=== PATIENT | female | born 1950 | race Caucasian/White ===

== ENCOUNTER 2023-01-12 07:59 | Outpatient (OUT) | payer MEDICARE, SELFPAY ==
[2023-01-12 08:32] LABS: Basophils Percent Auto 0.6 % (0.2-2.0); Eosinophils Absolute Auto 0.2 10^3/uL (0.0-0.7); Eosinophils Percent Auto 2.7 % (0.9-7.0); Hematocrit 41.4 % (36.0-48.0); Hemoglobin 13.8 g/dL (12.0-16.0); Immature Granulocytes Abs Auto 0.03 10^3/uL (0.00-0.03); Immature Granulocytes Pct Auto 0.5 % (0.0-0.5); Lymphocytes Absolute Auto 2.2 10^3/uL (1.2-3.8); Lymphocytes Percent Auto 33.7 % (20.5-60.0); Mean Corpuscular HGB Conc 33.3 g/dL (29.9-35.2); Mean Corpuscular Hemoglobin 31.2 pg (26.7-34.0); Mean Corpuscular Volume 93.5 fL (81.0-99.0); Mean Platelet Volume 10.6 fL (9.5-13.5); Monocytes Absolute Auto 0.5 10^3/uL (0.3-0.8); Monocytes Percent Auto 8.2 % (1.7-12.0); Neutrophils Absolute Auto 3.6 10^3/uL (1.4-6.5); Neutrophils Percent Auto 54.3 % (43.0-75.0); Platelet Count 221 10^3/uL (150-450); Red Blood Count 4.43 10^6/uL (4.20-5.40); Red Cell Distribution Width 12.6 % (11.0-15.0); White Blood Count 6.6 10^3/uL (4.0-11.0)
[2023-01-12 09:44] LABS: Alanine Aminotransferase 22 U/L (14-59); Albumin Globulin Ratio 0.9; Albumin Level 3.6 g/dL (3.4-5.0); Alkaline Phosphatase 72 U/L (46-116); Aspartate Amino Transferase 17 U/L (15-37); BUN Creatinine Ratio 20.2; Bilirubin Total 0.6 mg/dL (0.2-1.0); Calcium 8.5 mg/dL (8.5-10.1); Carbon Dioxide 28.3 mmol/L (21.0-32.0); Chloride 104 mmol/L (98-107); Chol HDL Ratio 2.4; Cholesterol 154 mg/dL (<=200); Estimated GFR (African America >60 (>=60); Estimated GFR (Non-African Ame >60 (>=60); Free T3 2.31 pg/mL (2.18-3.98); Globulin 3.8 g/dL; Glucose 98 mg/dL (74-106); HDL Cholesterol 64 mg/dL (40-60); Potassium 4.3 mmol/L (3.5-5.1); Sodium 142 mmol/L (136-145); Thyroid Stimulating Hormone 3.163 uIU/mL (0.358-3.740); Total Protein 7.4 g/dL (6.4-8.2); Triglycerides 51 mg/dL (<=150); VLDL CHOLESTEROL 10.2 mg/dL
[2023-01-12 09:57] LABS: Estimated Average Glucose 114 mg/dL; Glycohemoglobin A1C 5.6 % (4.5-6.2)
== END 2023-01-12 08:00 | disposition home or self-care (01) ==
LOC: LAB 08:07
PROVIDERS: PCP Family Medicine; Visit Provider Family Medicine
DX: E03.9 Hypothyroidism, unspecified (principal); L71.9 Rosacea, unspecified; I10 Essential (primary) hypertension; I44.7 Left bundle-branch block, unspecified; C50.919 Malignant neoplasm of unspecified site of unspecified female breast
CPT/HCPCS: 36415; 80053; 80061; 82306; 83036; 83540; 84436; 84443; 84481; 85025

== ENCOUNTER 2024-03-27 08:08 | Outpatient (OUT) | payer MEDICARE, SELFPAY ==
--- OUTSIDE RECORDS SUMMARY | 2024-03-27 08:14 | XMS_ITS | CCD ---
Author Organization [facility] Care Team Providers Care Slab Off Mill Tender Name Role Phone DR KALEB MCMULLEN Admitting Unavailable DR KALEB MCMULLEN Attending Unavailable DR KALEB MCMULLEN Primary Care Unavailable DR KALEB MCMULLEN Consulting Unavailable DR KALEB MCMULLEN Admitting Unavailable DR KALEB MCMULLEN Attending Unavailable WOO, DR MANUEL Primary Care Unavailable WOO, DR MANUEL Consulting Unavailable MD Kaleb Mcmullen Primary Care Provider [phone] MD Zack Brothers Attending Provider Kaleb Mcmullen MD Primary Care Provider [phone] MD Kaleb Mcmullen Primary Care Provider [phone] MD Zack Brothers Attending Provider Kaleb Mcmullen MD Primary Care Provider [phone] Zack Brothers MD Attending Provider Zack Brothers Attending Unavailable Zack Brothers Admitting Unavailable Kaleb Mcmullen Primary Care Unavailable Kaleb Mcmullen MD Primary Care Provider [phone] KALEB MCMULLEN Primary Care Unavailable Steffen BROTHERS Attending Unavailable Allergies Allergy Classification Reported Allergen(s) Allergy Type Date of Onset Reaction(s) Facility (1 source) Erythromycin Drug Allergy [facility] (1 source) HYDROmorphone Drug Allergy [facility] (3 sources) Erythromycin; Translations: [ERYTHROMYCIN] Drug Allergy 2 Vomiting [facility] (3 sources) HYDROmorphone; Translations: [HYDROMORPHONE (BULK)] Drug Allergy 9 Mental Status Change [facility] Medications Current Medications Medication Drug Class(es) Dates Sig (Normalized) Sig (Original) brimonidine tartrate 2 mg/ml ophthalmic solution (1 source) alpha-Adrenergic Agonist Start: 02-17-2024 brimonidine (ALPHAGAN) 0.2 % ophthalmic solution USE 1 DROP IN LEFT EYE EACH MORNING 02/17/2024 Active latanoprost 0.05 mg/ml ophthalmic solution (2 sources) Prostaglandin Analog Start: 02-02-2022 latanoprost (XALATAN) 0.005 % ophthalmic solution 02/02/2022 Active liothyronine sodium 0.005 mg oral tablet (2 sources) l-Triiodothyronine Start: 01-10-2022 take 1 tablet by mouth once daily liothyronine (CYTOMEL) 5 mcg tablet Take 5 mcg by mouth once daily. 01/10/2022 Active Comment on above: Take 5 mcg by mouth once daily. lisinopril 20 mg oral tablet (2 sources) Angiotensin Converting Enzyme Inhibitor Start: 11-30-2011 take 1 tablet by mouth once daily lisinopril (ZESTRIL) 20 mg tablet Take 20 mg by mouth once daily. 11/30/2011 Active Start: 11-30-2011 take 2 tablets by [facility] once daily LISINOPRIL 10 mg tablet Take 20 mg by mouth once daily. 0 11/30/2011 Active Comment on above: Take 20 mg by mouth once daily. loratadine 10 mg oral tablet (2 sources) take 1 tablet by mouth once daily loratadine (CLARITIN) 10 mg tablet Take 10 mg by mouth once daily. Active Comment on above: Take 10 mg by mouth once daily. lovastatin 20 mg oral tablet (2 sources) HMG-CoA Reductase Inhibitor Start: 11-30-2011 take 1 tablet by mouth once daily at bedtime LOVASTATIN 20 mg tablet Take 20 mg by mouth daily at bedtime. 11/30/2011 Active Comment on above: Take 20 mg by mouth daily at bedtime. Completed/Discontinued Medications Medication Drug Class(es) Dates Sig (Normalized) Sig (Original) docusate sodium 100 mg oral capsule (1 source) Start: 08-19-2018 End: 02-16-2022 take 1 capsule by mouth every twelve hours as needed docusate sodium (COLACE) 100 mg capsule Take 1 capsule by mouth twice daily as needed for Constipation. 30 capsule 0 08/19/2018 02/16/2022 Discontinued Comment on above: Take 1 capsule by [facility] twice daily as needed for Constipation. 24 hr oxybutynin chloride 10 mg extended release oral tablet (1 source) Cholinergic Muscarinic Antagonist Start: 08-27-2018 End: 02-16-2022 take 1 tablet by mouth once daily oxybutynin ER (DITROPAN XL) 10 mg 24 hr tablet Take 1 tablet by mouth once daily. 30 tablet 0 08/27/2018 02/16/2022 Discontinued Comment on above: Take 1 tablet by [facility] once daily. tamsulosin hydrochloride 0.4 mg oral capsule (1 source) alpha-Adrenergic Bernice Start: 08-21-2018 End: 02-16-2022 tamsulosin ER (FLOMAX) 0.4 mg cap Take 1 capsule by mouth once daily. 30 minutes after the same meal each day. 30 capsule 0 08/21/2018 02/16/2022 Discontinued Comment on above: Take 1 capsule by [facility] once daily. 30 minutes after the same meal each day. Problems Active Problems Problem Classification Problem Date Documented Date Episodic/Chronic Biliary tract disease (4 sources) Calculus of gallbladder without cholecystitis without obstruction; Translations: [CALCU GB W/O CHOLECYST W/O OBST] Onset: 2 Episodic Cancer of breast (5 sources) History of malignant neoplasm of breast; Translations: [Personal history of malignant neoplasm of breast] Onset: 4 Episodic Deficiency and other anemia (1 source) Anemia, unspecified; Translations: [ANEMIA UNSPECIFIED] Onset: 2 Episodic Diabetes mellitus without complication (1 source) Other abnormal glucose; Translations: [OTHER ABNORMAL GLUCOSE] Onset: 2 Episodic Disorders of lipid metabolism (1 source) Pure hypercholesterolemia, unspecified; Translations: [PURE HYPERCHOLESTEROLEMIA UNSPEC] Onset: 2 Chronic Essential hypertension (1 source) Essential (primary) hypertension; Translations: [ESSENTIAL PRIMARY HYPERTENSION] Onset: 2 Chronic Other nutritional; endocrine; and metabolic disorders (2 sources) Severe obesity; Translations: [Morbid (severe) obesity due to excess calories] Onset: 1 03-10-2020 Chronic Other screening for suspected conditions (not mental disorders or infectious disease) (1 source) Encounter for screening for malignant neoplasm of rectum; Translations: [ENC SCREEN MALIG NEOPLASM RECTUM] Onset: 2 Episodic Thyroid disorders (4 sources) Hypothyroidism, unspecified; Translations: [HYPOTHYROIDISM UNSPECIFIED] Onset: 2 Chronic Past or Other Problems Problem Classification Problem Date Documented Da te Episodic/Chronic Cancer of breast (2 sources) Malignant neoplasm of unspecified site of unspecified female breast; Translations: [Malignant adenomatous neoplasm] Onset: 01-25-2022 Resolved: 03-10-2020 03-10-2020 Chronic Crushing injury or internal injury (2 sources) Injury of ureter; Translations: [Unspecified injury of ureter, initial encounter] Onset: 07-18-2018 08-19-2018 Episodic Genitourinary symptoms and ill-defined conditions (1 source) Abnormal urine; Translations: [Unspecified abnormal findings in urine] Onset: 07-23-2018 Resolved: 03-10-2020 03-10-2020 Episodic Nutritional deficiencies (1 source) Undernutrition; Translations: [Mild protein-calorie malnutrition] Onset: 08-20-2018 Resolved: 03-10-2020 03-10-2020 Chronic Other diseases of kidney and ureters (2 sources) Stricture of ureter; Translations: [Crossing vessel and stricture of ureter without hydronephrosis] Onset: 11-22-2018 11-22-2018 Episodic Results Test Name Value Interpretation Reference Range Facility [facility] 03-14-2024 CNOV Office Visit (RADTSA) JOSEYAKELIN Messina ([id number]) 1950 F Date Time Provider Department 03/14/24 10:30 AM Steffen BROTHERS During your visit today, we recorded the following information about you: Temperature Pulse Respiration Blood pressure 98.6 degrees 70/minute 18/minute 152/80 Weight 116.8 kg Steffen Brothers MD 03/14/2024 10:38 AM Signed 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 Stage: 0; [id number] Radiation Course Summary Treatment Technique: conformal Imaging: portal with cone beam imaging for boost Date Start: 11/04/07 Date Complete: 12/17/07 Treatment Area Number [employer] Number of Fractions (Elapsed Days) Dose Right Breast 10 6MV 25(36) 5000cGy Right Breast Boost 3 6MV/10MV 5(7) 1250cGy Total 30(43) 6250cGy INTERVAL HISTORY: Yakelin Garcia presents for follow up 12 months after [...] Primary Visit Diagnosis:History of breast cancer [Z85.3] Order(s):[facility] [5892106] Order #: [id number] FUTURE Prescriptions as of 03/14/2024 - brimonidine [...] Service: OFFICE/OUTPATIENT ESTABLISHED SF MDM 10 MIN [16505] Additional E/M codes: VISIT CPLX INHERENT EANDM ASSOC WITH MED * Disposition: Return in about 1 year (around 03/14/2025), or if symptoms worsen or fail to improve. Follow-up and Disposition History for Encounter Date Provider Department Center 03/14/2024 [id number] BROTHERS [place] Encounter Status:Closed by Steffen BROTHERS on 03/14/24 Normal [facility] MM diagnostic mammo BI w/CAD on 03-06-2024 MM diagnostic mammo BI w/CAD [facility] [place] [address] Mammography Report Signed Patient: Yakelin Garcia MR#: [id number] : 1950 Acct:[id number] Age/Sex: 73 / F ADM Date: 03/06/24 Loc: [place] Room: Type: [facility] Attending Dr: Zack Brothers MD Copies to: [...] James Mccullough M.D.03/06/2024 3:04 PM Dictation Location: [facility] Transcribed By: PENNIE 03/06/24 1504 Dictated By: James Mccullough MD 03/06/24 1500 Signed By: 03/06/24 1504 Normal [facility] Mammography reportOrdered By : James Mccullough on 03-06-2024 Diagnostic imaging study [facility] [place] [address] [place], [place] [id number] Mammography Report Signed Patient: Yakelin Garcia MR#: [id number] : 1950 Acct:[id number] Age/Sex: 73 / F ADM Date: 5 Loc: [place] Room: Type: [facility] Attending Dr: Zack Brothers MD Copies to: MD Steffen Valdovinos MD~ Ordering Provider: Steffen Brothers MD Date of [...] James Mccullough M.D.03/06/2024 3:04 PM Dictation Location: [facility] Transcribed By: PENNIE 03/06/24 1504 Dictated By: James Mccullough MD 03/06/24 1500 Signed By: 03/06/24 1504 [facility] Work Phone: FREE T3on 01-12-2022 FREE T3 2.54 pg/mlL Normal 2.18-3.98 [facility] Comment on above: Performed By: #### T 4, TSH, FT3 #### [facility] [address] [place] [address] Dr. Maldonado Murphy T4on 01-12-2022 T4 [Mass/Vol] 7.50 ug/dL Normal 4.80-13.90 [facility] Comment on above: Performed By: #### T 4, TSH, FT3 #### [facility] [address] [place] [address] Dr. Maldonado Murphy TSHon 01-12-2022 TSH 3.932 uIU/mL Critically high 0.358-3.740 [facility] Comment on above: Performed By: #### T 4, TSH, FT3 #### [facility] [address] [place] [address] Dr. Maldonado Murphy INSULINon 12-10-2021 Insulin 27.0 uIU/mL Critically high 2.6-24.9 [facility] Comment on above: Performed By: #### I NSULIN #### [facility] [address] [place] [address] Dr. Maldonado Murphy CBC AUTO DIFFon 12-09-2021 BASO # 0.0 103/ul Normal 0.0-0.1 [facility] Comment on above: Performed By: #### C BC #### [facility] [address] [place] [address] Dr. Maldonado Murphy Basophils/100 WBC (Bld) 0.3 % Normal 0.2-2.0 [facility] Comment on above: Performed By: #### C BC #### [facility] [address] [place] [address] Dr. Maldonado Murphy EO # 0.2 103/ul Normal 0.0-0.7 [facility] Comment on above: Performed By: #### C BC #### [facility] [address] [place] [address] Dr. Maldonado Murphy Eosinophils/100 WBC (Bld) 2.5 % Normal 0.9-7.0 [facility] Comment on above: Performed By: #### C BC #### [facility] [address] [place] [address] Dr. Maldonado Murphy Erythrocyte distribution width (RBC) [Ratio] 12.5 % Normal 11.0-15.0 [facility] Comment on above: Performed By: #### C BC #### [facility] [address] [place] [address] Dr. Maldonado Murphy Hematocrit (Bld) [Volume fraction] 40.8 % Normal 36.0-48.0 [facility] Comment on above: Performed By: #### C BC #### [facility] [address] [place] [address] Dr. Maldonado Murphy Hemoglobin (Bld) [Mass/Vol] 13.5 g/dL Normal 12.0-16.0 [facility] Comment on above: Performed By: #### C BC #### [facility] [address] [place] [address] Dr. Maldonado Murphy IG # 0.04 10e3/ul Critically high 0.00-0.03 [facility] Comment on above: Performed By: #### C BC #### [facility] [address] [place] [address] Dr. Maldonado Murphy IG % 0.7 % Critically high 0.0-0.5 [facility] Comment on above: Performed By: #### C BC #### [facility] [address] [place] [address] Dr. Maldonado Murphy LYMPH # 1.9 103/ul Normal 1.2-3.8 [facility] Comment on above: Performed By: #### C BC #### [facility] [address] [place] [address] Dr. Maldonado Murphy Lymphocytes/100 WBC (Bld) 32.0 % Normal 20.5-60.0 [facility] Comment on above: Performed By: #### C BC #### [facility] [address] [place] [address] Dr. Maldonado Murphy MANUAL DIFF REQ NO Normal [facility] Comment on above: Performed By: #### C BC #### [facility] [address] [place] [address] Dr. Maldonado Murphy MCH (RBC) [Entitic mass] 30.6 pg Normal 26.7-34.0 [facility] Comment on above: Performed By: #### C BC #### [facility] [address] [place] [address] Dr. Maldonado Murphy MCHC (RBC) [Mass/Vol] 33.1 g/dL Normal 29.9-35.2 [facility] Comment on above: Performed By: #### C BC #### [facility] [address] [place] [address] Dr. Maldonado Murphy MCV (RBC) [Entitic vol] 92.5 fL Normal 81.0-99.0 [facility] Comment on above: Performed By: #### C BC #### [facility] [address] [place] [address] Dr. Maldonado Murphy MONO # 0.6 103/ul Normal 0.3-0.8 [facility] Comment on above: Performed By: #### C BC #### [facility] [address] [place] [address] Dr. Maldonado Murphy Monocytes/100 WBC (Bld) 9.3 % Normal 1.7-12.0 [facility] Comment on above: Performed By: #### C BC #### [facility] [address] [place] [address] Dr. Maldonado Murphy NEUT # 3.3 103/ul Normal 1.4-6.5 [facility] Comment on above: Performed By: #### C BC #### [facility] [address] [place] [address] Dr. Maldonado Murphy Neutrophils/100 WBC (Bld) 55.2 % Normal 43.0-75.0 [facility] Comment on above: Performed By: #### C BC #### [facility] [address] [place] [address] Dr. Maldonado Murphy Platelet mean volume (Bld) [Entitic vol] 10.4 fL Normal 9.5-13.5 [facility] Comment on above: Performed By: #### C BC #### [facility] [address] [place] [address] Dr. Maldonado Murphy PLT 227 103/ul Normal 150-450 [facility] Comment on above: Performed By: #### C BC #### [facility] [address] [place] [address] Dr. Maldonado Murphy RBC 4.41 106/ul Normal 4.20-5.40 [facility] Comment on above: Performed By: #### C BC #### [facility] [address] [place] [address] Dr. Maldonado Murphy WBC 6.0 103/ul Normal 4.0-11.0 [facility] Comment on above: Performed By: #### C BC #### [facility] [address] [place] [address] Dr. Maldonado Murphy FREE THYROXINE INDEX T7on FTI 1.88 Normal 1.30-4.50 [facility] Comment on above: Performed By: #### T SH, CMP, LIPID, T7 #### [facility] [address] [place] [address] Dr. Maldonado Murphy T3U 28.0 % Critically low 30.0-39.0 [facility] Comment on above: Performed By: #### T SH, CMP, LIPID, T7 #### [facility] [address] [place] [address] Dr. Maldonado Murphy T4 [Mass/Vol] 6.70 ug/dL Normal 4.80-13.90 [facility] Comment on above: Performed By: #### T SH, CMP, LIPID, T7 #### [facility] [address] [place] [address] Dr. Maldonado Murphy GLYCOHEMOGLOBIN A1Con 2021 ADA RECOMMENDATION SEE BELOW Normal [facility] Comment on above: Result Comment: ADA RECOMMENDED LIMIT 4.0 - 6.0 ADA THERAPEUTIC TARGET < 7.0 ACTION SUGGESTED > 7.0 Performed By: #### T SH, CMP, LIPID, T7 #### [facility] [address] [place] [address] Dr. Maldonado Murphy Glucose [Mass/Vol] 126 mg/dL Normal [facility] Comment on above: Performed By: #### T SH, CMP, LIPID, T7 #### [facility] [address], [place] [address] Dr. Maldonado Murphy HbA1c (Bld) [Mass fraction] 6.0 % Normal 4.5-6.2 [facility] Comment on above: Performed By: #### T SH, CMP, LIPID, T7 #### [facility] [address] [place] [id number] [address] Maldonado Murphy IRONon 12-09-2021 Iron [Mass/Vol] 62.0 ug/dL Normal 50.0-170.0 [facility] Comment on above: Performed By: #### I ALEJANDRO #### [facility] [address] [place] [address] [address] Maldonado Murphy LIPID PROFILEon 12-09-2021 CHOL-HDL RATIO NORM SEE BELOW Normal [facility] Comment on above: Result Comment: 3.3 - 4.4 LOW RISK 4.4 - 7.1 AVERAGE RISK 7.1 - 11.0 MODERATE RISK >11.0 HIGH RISK Performed By: #### T SH, CMP, LIPID, T7 #### [facility] [address] [place] [address] [address] Maldonado Murphy Cholesterol [Mass/Vol] 148 mg/dL Normal <=200 [facility] Comment on above: Performed By: #### T SH, CMP, LIPID, T7 #### [facility] [address] [address] [address] Maldonado Murphy Cholesterol in HDL [Mass/Vol] 62 mg/dL Critically high 40-60 [facility] Comment on above: Performed By: #### T SH, CMP, LIPID, T7 #### [facility] [address], [place] [address] Dr. Maldonado Murphy Cholesterol in LDL [Mass/Vol] 77.8 mg/dL Normal [facility] Comment on above: Performed By: #### T SH, CMP, LIPID, T7 #### [facility] [address] [address] [address] Maldonado Murphy Cholesterol.total/Cho lesterol in HDL [Mass ratio] 2.4 {ratio} Normal [facility] Comment on above: Performed By: #### T SH, CMP, LIPID, T7 #### [facility] [address] [address] [address] Maldonado Murphy HDL NORMAL > or = 60 mg/dl - LOW CARDIOVASCULAR RISK <40 mg/dl - HIGH CARDIOVASCULAR RISK Normal [facility] Comment on above: Performed By: #### T SH, CMP, LIPID, T7 #### [facility] [address] [address] [address] Maldonado Murphy LDL CALC NORMAL SEE BELOW Normal [facility] Comment on above: Result Comment: <100 mg/dl OPTIMAL 100 - 129 mg/dl NEAR OR ABOVE OPTIMAL 130 - 159 mg/dl BORDERLINE HIGH 160 - 189 mg/dl HIGH >190 mg/dl VERY HIGH Performed By: #### T SH, CMP, LIPID, T7 #### [facility] [address] [address] [address] Maldonado Murphy Triglyceride [Mass/Vol] 41 mg/dL Normal <=150 [facility] Comment on above: Performed By: #### T SH, CMP, LIPID, T7 #### [facility] [address] [address] [address] Maldonado Murphy VLDL CALC 8.2 mg/dL Normal [facility] Comment on above: Performed By: #### T SH, CMP, LIPID, T7 #### [facility] [address] [address] [address] Maldonado Murphy PROF 14(COMP METB)on 022 Albumin [Mass/Vol] 3.7 g/dL Normal 3.4-5.0 [facility] Comment on above: Performed By: #### T SH, CMP, LIPID, T7 #### [facility] [address] [address] [address] Maldonado Murphy Albumin/Globulin [Mass ratio] 1.0 {ratio} Normal [facility] Comment on above: Performed By: #### T SH, CMP, LIPID, T7 #### [facility] [address] [address] [address] Maldonado Murphy ALP [Catalytic activity/Vol] 68 U/L Normal 46-116 [facility] Comment on above: Performed By: #### T SH, CMP, LIPID, T7 #### [facility] [address] [address] [address] Maldonado Murphy ALT [Catalytic activity/Vol] 23 U/L Normal 14-59 [facility] Comment on above: Performed By: #### T SH, CMP, LIPID, T7 #### [facility] [address] [address] [address] Maldonado Murphy Anion gap [Moles/Vol] 9.9 mmol/L Normal [facility] Comment on above: Performed By: #### T SH, CMP, LIPID, T7 #### [facility] [address] [address] [address] Maldonado Murphy AST [Catalytic activity/Vol] 21 U/L Normal 15-37 [facility] Comment on above: Performed By: #### T SH, CMP, LIPID, T7 #### [facility] [address] [place] [address] Dr. Maldonado Murphy Bilirubin [Mass/Vol] 0.5 mg/dL Normal 0.2-1.0 [facility] Comment on above: Performed By: #### T SH, CMP, LIPID, T7 #### [facility] [address] [place] [address] Dr. Maldonado Murphy Calcium [Mass/Vol] 9.0 mg/dL Normal 8.5-10.1 [facility] Comment on above: Performed By: #### T SH, CMP, LIPID, T7 #### [facility] [address] [address] [address] Maldonado Murphy Chloride [Moles/Vol] 105 mmol/L Normal 98-107 [facility] Comment on above: Performed By: #### T SH, CMP, LIPID, T7 #### [facility] [address] [place] [address] Dr. Maldonado Murphy CO2 [Moles/Vol] 28.1 mmol/L Normal 21.0-32.0 [facility] Comment on above: Performed By: #### T SH, CMP, LIPID, T7 #### [facility] [address] [address] [address] Maldonado Murphy Creatinine [Mass/Vol] 0.85 mg/dL Normal 0.55-1.02 [facility] Comment on above: Performed By: #### T SH, CMP, LIPID, T7 #### [facility] [address] [address] [address] Maldonado Murphy EGFR-AF KYRGYZ >60 Normal >=60 [facility] Comment on above: Performed By: #### T SH, CMP, LIPID, T7 #### [facility] [address] [address] [address] Maldonado Murphy EGFR-NON AF KYRGYZ >60 Normal >=60 [facility] Comment on above: Performed By: #### T SH, CMP, LIPID, T7 #### [facility] [address] [place] [address] Dr. Maldonado Murphy Globulin (S) [Mass/Vol] 3.6 g/dL Normal [facility] Comment on above: Performed By: #### T SH, CMP, LIPID, T7 #### [facility] [address] [place] [address] Dr. Maldonado Murphy Glucose [Mass/Vol] 103 mg/dL Normal 74-106 [facility] Comment on above: Performed By: #### T SH, CMP, LIPID, T7 #### [facility] [address] [place] [address] Dr. Maldonado Murphy Potassium [Moles/Vol] 4.0 mmol/L Normal 3.5-5.1 [facility] [facility] Comment on above: Performed By: #### T SH, CMP, LIPID, T7 #### [facility] [address] [address] [address] Maldonado Murphy Protein [Mass/Vol] 7.3 g/dL Normal 6.4-8.2 [facility] Comment on above: Performed By: #### T SH, CMP, LIPID, T7 #### [facility] [address] [address] [address] Maldonado Murphy Sodium [Moles/Vol] 139 mmol/L Normal 136-145 [facility] Comment on above: Performed By: #### T SH, CMP, LIPID, T7 #### [facility] [address], [place] [address] Dr. Maldonado Murphy Urea nitrogen [Mass/Vol] 17.0 mg/dL Normal 7.0-18.0 [facility] Comment on above: Performed By: #### T SH, CMP, LIPID, T7 #### [facility] [address], [place] [address] Dr. Maldonado Murphy Urea nitrogen/Creatinine [Mass ratio] 20.0 mg/mg Normal [facility] Comment on above: Performed By: #### T SH, CMP, LIPID, T7 #### [facility] [address], [place] [address] Dr. Maldonado Murphy TSHon 12-09-2021 TSH 4.119 uIU/mL Critically high 0.358-3.740 [facility] Comment on above: Performed By: #### T SH, CMP, LIPID, T7 #### [facility] [address], [place] [address] Dr. Maldonado Murphy Vital Signs Date Time Vital Sign Value Performing Clinician Facility 03-14-2024 10:29-0500 Body mass index (BMI) [Ratio] 42.85 kg/m2 MARIE Brothers MD Work Phone: [facility] 03-14-2024 10:29-0500 Body temperature 98.6 [degF] MARIE Brothers MD Work Phone: [facility] 03-14-2024 10:29-0500 Body weight 116.8 kg MARIE Brothers MD Work Phone: [facility] 03-14-2024 10:29-0500 Diastolic blood pressure 80 mm[Hg] MARIE Brothers MD Work Phone: [facility] Comment on above: repeat 159/93 03-14-2024 10:29-0500 Heart rate 70 /min MARIE Brothers MD Work Phone: [facility] 03-14-2024 10:29-0500 Respiratory rate 18 /min MARIE Brothers MD Work Phone: [facility] 03-14-2024 10:29-0500 SaO2% (BldA) [Mass fraction] 97 % MARIE Brothers MD Work Phone: [facility] 03-14-2024 10:29-0500 Systolic blood pressure 152 mm[Hg] MARIE Brothers MD Work Phone: [facility] Comment on above: repeat 159/93 02-09-2022 10:25-0500 Body temperature 97.5 [degF] MARIE Brothers MD Work Phone: [facility] 02-09-2022 10:25-0500 Body weight 111.13 kg MARIE Brothers MD Work Phone: [facility] 02-09-2022 10:25-0500 Diastolic blood pressure 61 mm[Hg] MARIE Brothers MD Work Phone: [facility] 02-09-2022 10:25-0500 Heart rate 65 /min MARIE Brothers MD Work Phone: [facility] 02-09-2022 10:25-0500 Respiratory rate 18 /min MARIE Brothers MD Work Phone: [facility] 02-09-2022 10:25-0500 SaO2% (BldA) [Mass fraction] 97 % MARIE Brothers MD Work Phone: [facility] 02-09-2022 10:25-0500 Systolic blood pressure 157 mm[Hg] MARIE Brothers MD Work Phone: [facility] Encounters Encounter Date Encounter Type Care Provider Facility Start: 03-14-2024 End: 03-14-2024 ambulatory KALEB MCMULLEN Facility:[facility] Start: 03-14-2024 End: 03-14-2024 Office outpatient visit 10 minutes G Howard Brothers MD Work Phone: [facility] Comment on above: History of breast ca ncer (Primary Dx) Start: 03-06-2024 End: 03-06-2024 Patient encounter procedure Kaleb Mcmullen MD Work Phone: [facility] Work Phone: Start: 03-06-2024 End: 03-06-2024 ambulatory Kaleb Mcmullen MD Work Phone: [facility] Work Phone: Start: 01-29-2023 End: 01-29-2023 ambulatory MD Kaleb Mcmullen Work Phone: [facility] Work Phone: Start: 01-29-2023 End: 01-29-2023 Patient encounter procedure MD Kaleb Mcmullen Work Phone: [facility] Work Phone: Start: 02-09-2022 End: 02-09-2022 Patient encounter procedure Steffen Brothers MD Work Phone: Radiation Oncology Comment on above: History of breast ca ncer (Primary Dx) Start: 01-27-2022 End: 01-27-2022 ambulatory MD Kaleb Mcmullen Work Phone: [facility] Work Phone: Start: 01-27-2022 End: 01-27-2022 Patient encounter procedure MD Kaleb Mcmullen Work Phone: [facility] Start: 01-12-2022 End: 01-13-[address] KALEB MCMULLEN Facility:[facility] Start: 12-09-2021 End: 12-10-[address] KALEB MCMULLEN Facility:[facility] Procedures Date Procedure Procedure Detail Performing Clinician Start: 03-06-2024 Bilateral mammography Jenna Mcmullen MD Work Phone: Start: 01-29-2023 Bilateral mammography Luciano Mcmullen Work Phone: Start: 01-27-2022 Bilateral mammography Luciano Mcmullen Work Phone: Plan of Treatment Date Care Activity Detail Author Start: 03-09-2025 End: 04-13-2025 MG Breast - bilateral Diagnostic [facility] BIL[facility]AL Radiology Routine History of breast cancer Expected: 03/09/2025, Expires: 04/13/2025 [facility] Work Phone: Comment on above: Expected: 03/09/2025 , Expires: 04/13/2025 Start: 02-27-2024 Advance Directive Discussion Advance Directive Discussion [facility] Start: 10-28-2023 Influenza vaccination Influenza Vacc ine (#1) [facility] Start: 10-14-2023 RSV Vaccine (1 - 1-d ose 75+ series) RSV Vaccine (1 - 1-dose 75+ series) [facility] Start: 01-29-2023 End: 03-11-2023 Diagnostic mammography computer-aided detcj bi [facility] BILAT Radiology Routine History of breast cancer Expected: 01/29/2023, Expires: 03/11/2023 [facility] Work Phone: Comment on above: Expected: 01/29/2023 , Expires: 03/11/2023 Start: 11-01-2022 Urine microalbumin profile DTaP,Tdap,Td Vaccine (2 - Td or Tdap) [facility] Start: 10-27-2021 Influenza vaccination INFLUENZA (#1) [facility] Start: 08-21-2021 DIABETES SCREEN DIABETES SCREEN [facility] Start: 08-21-2021 Diabetes Screening Diabetes Screenin g [facility] Start: 02-26-2021 ADVANCE DIRECTIVE DISCUSSION ADVANCE DIRECTIVE DISCUSSION [facility] Start: 02-26-2021 DEPRESSION ASSESSMENT DEPRESSION ASS ESSMENT [facility] Start: 01-18-2021 COVID-19 VACCINE (4 - Booster for Pfizer series) COVID-19 VACCINE (4 - Booster for Pfizer series) [facility] Start: 2013 BONE DENSITY BONE DENSITY [facility] Start: 2013 PNEUMOCOCCAL: 65+ (1 - PCV) PNEUMOCOCCAL: 65+ (1 - PCV) [facility] Start: 2013 Screening for osteoporosis Bone Density Screening [facility] Start: 1998 Pneumococcal Vaccine : 50+ (1 of 1 - PCV) Pneumococcal Vaccine: 50+ (1 of 1 - PCV) [facility] Start: 1998 SHINGRIX VACCINE (1 of 2) SHINGRIX VACCINE (1 of 2) [facility] Start: 1993 COLOGUARD (FIT-DNA) COLOGUARD (FIT-D NA) [facility] Start: 1993 Colonoscopy COLONOSCOPY [facility] Start: 1993 COLORECTAL CANCER SCREENING COLORECTAL CANCER SCREENING [facility] Start: [address] COLONOGRAPHY [facility] Start: 1993 FECAL OCCULT BLOOD FECAL OCCULT BLOO D [facility] Start: 1993 Lipid panel Lipid Screening [facility] Start: 1993 LIPID SCREEN LIPID SCREEN [facility] Start: 1993 Screening for malign ant neoplasm of colon [facility] Start: 1993 SIGMOIDOSCOPY SIGMOIDOSCOPY [facility] Start: 1988 Mammography MAMMOGRAM [facility] Start: 10-14-1967 Urine microalbumin profile DTAP,TDAP,TD (1 - Tdap) [facility] Start: 1966 Anxiety Screening Anxiety Screening [facility] Start: 1966 Depression Screening Depression Scre ening [facility] Start: 1966 HEPATITIS C SCREENING HEPATITIS C [facility] Start: 1966 Hepatitis C screening Hepatitis C [facility] Immunizations Immunization Date Immunization Notes Care Provider Fa claudio 03-26-2013 influenza virus vacc ine, unspecified formulation MARIE Brothers MD Work Phone: [facility] Payers Date Payer Category Payer Self-pay [id number] 2013 Medicare AETNA MEDICARE A ETNA MEDICARE PPO [id number] 2013-Present [phone] [address] [place] [address] PPO [id number] 1959 Medicare [id number] 1950 Unknown [id number] 1950 Unknown [id number] Unknown [id number] Social History Date Type Detail Facility [facility] Work Phone: Start: 1950 Sex Assigned At Female F [facility] Start: 12-28-2011 [facility] Never smoked tobacco [facility] Start: 12-28-2011 Tobacco use and exposure Smokeless tobacco non-user [facility] Start: 02-09-2022 End: 03-01-2023 Alcohol intake Current non-drinker of alcohol (finding) [facility] Start: 1950 Sex Assigned At Not on file [facility] if ever smoked [facility] Work Phone: Start: 03-07-2024 Sex Female (finding) [facility] Start: 03-01-2023 End: 03-14-2024 History of Social function [facility] Start: 03-01-2023 End: 03-14-2024 Tobacco use panel [facility] Adult Depression Screening Assessment 0 [facility] Medical Equipment Procedure Code Equipment Code Equipment Origin al Text Equipment Identifier Dates Stent Inlay Opti ma 7fr Taper [employer] Phreecoat 26cm Ureteral - [id number] Start: 08-19-2018 Progress note 03-14-2024 Note Date & Type Note Facility 03-14-2024 Note HNO ID: [id number] Author: Steffen BROTHERS MD Service: ? 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 [facility] History of Present illness Narrative 03-14-2024 Steffen Brothers MD - 03/14/2024 10:14 AM EST Note Date & Type Note Facility 03-14-2024 History of Presen t illness Narrative Images from the original note were not included. 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 Stage: 0; [id number] Radiation Course Summary Treatment Technique: conformal Imaging: portal with cone beam imaging for boost Date Start: 11/04/07 Date Complete: 12/17/07 Treatment Area Number [employer] Number of Fractions (Elapsed Days) Dose Right Breast 10 6MV 25(36) 5000cGy Right Breast Boost 3 6MV/10MV 5(7) 1250cGy Total 30(43) 6250cGy INTERVAL HISTORY: Yakelin Garcia presents for follow up 12 months after [...] VS: BP 152/80 Pulse 70 Temp 37 C (98.6 F) Resp 18 Wt 116.8 kg (257 lb 8 oz) SpO2 97% BMI 42.85 kg/m KPS: 100 General Appearance: Well appearing, alert, [...] as active information included in the EMR. documented in this encounter [facility] History of Present illness Narrative 02-09-2022 Steffen Brothers MD - 02/09/2022 10:25 AM EST Note Date & Type Note Facility 02-09-2022 History of Presen t illness Narrative Images from the original note were not included. 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 The patient denies any new problems. No changes on self breast exam. She denies headache, vision changes, bone pain, chest pain, SOB, N/V, or focal neurologic deficits. RADIOLOGY: Bilateral mammography 01/27/2022: No mammographic evidence of malignancy. Routine follow-up in 1 year recommended. ALLERGIES: ALLERGIES Allergen Reactions Dilaudid [Hydromorp* Mental Status Change Erythromycin Vomiting MEDICATIONS: latanoprost (XALATAN) 0.005 % ophthalmic solution liothyronine (CYTOMEL) 5 mcg tablet Take 5 mcg by mouth once daily. LISINOPRIL 10 mg tablet Take 20 mg by mouth once daily. LOVASTATIN 20 mg tablet Take 20 mg by mouth daily at bedtime. loratadine (CLARITIN) 10 mg tablet Take 10 mg by mouth once daily. oxybutynin ER (DITROPAN XL) 10 mg 24 hr tablet Take 1 tablet by mouth once daily. tamsulosin ER (FLOMAX) 0.4 mg cap Take 1 capsule by mouth once daily. 30 minutes after the same meal each day. docusate sodium (COLACE) 100 mg capsule Take 1 capsule by mouth twice daily as needed for Constipation. PHYSICAL EXAM: VS: BP 157/61 Pulse 65 Temp 36.4 C (97.5 F) Resp 18 Wt 111.1 kg (245 lb) SpO2 97% BMI 40.77 kg/m KPS: 100 General Appearance: Well appearing, alert, in no acute distress, well-hydrated, well nourished.. Skin: Skin color, texture, turgor normal, no suspicious rashes or lesions. Lungs: Lungs clear to auscultation. No wheezing, rhonchi, rales.. Heart: RRR without murmur, gallop, or rubs. No ectopy. Lymph Nodes: No cervical lymphadenopathy, No supraclavicular lymphadenopathy and No axillary lymphadenopathy.. Breast: No suspicious changes either breast. stable area of fullness in the upper outer right breast consistent with posttreatment changes. 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 Patient continues to do well. She has some mild posttreatment soft tissue changes that are stable. No evidence of recurrence. Recommend follow-up in 1 year when she is due for mammography. Signed by: Steffen Brothers MD Portions of the above note extracted and edited from previous visit as well as active information included in the EMR. documented in this encounter [facility] History of Past illness Narrative 08-20-2018 Note Date & Type Note Facility 08-20-2018 History of Past i llness Narrative Problem Noted Date Resolved Date Malnutrition of mild degree 08/20/201802/26 Abnormal urine finding 07/23/2018 1 Intraductal carcinoma 03/10/2020 documented as of this encounter (statuses as of 02/17/2022) [facility] Evaluation note Note Date & Type Note Facility Evaluation note No assessment information availa [facility] Work Phone: Evaluation note Note Date & Type Note Facility Evaluation note Diagnosis History of breast cancer- Primary Personal history of malignant neoplasm of breast documented in this encounter [facility] Evaluation note Note Date & Type Note Facility Evaluation note Diagnosis History of breast cancer- Primary Personal history of malignant neoplasm of breast documented in this encounter [facility] Reason for referral (narrative) Diagnostic Procedure Only (Routine) - Pending Review Note Date & Type Note Facility Reason for referral (narrati ve) Specialty Diagnoses / Procedures Referred By Melba jc Referred To Contact [facility] Diagnoses History of breast cancer Procedures [facility] BILAT DIAGNOSTIC MAMMOGRAPHY COMPUTER-AIDED DETCJ Steffen Crotez MD [facility] [place] [address] [facility] [place] [place] [id number] Referral ID Status Reason Start Date Expiration Date Visits Requested Visits Authorized [id number] Pending Review Auto-Generat ed Referral 01/29/2023 03/11/2023 1 1 [facility] Reason for referral (narrative) Diagnostic Procedure Only (Routine) - New Request Note Date & Type Note Facility Reason for referral (narrati ve) Specialty Diagnoses / Procedures Referred By Melba jc Referred To Contact [facility] Diagnoses History of breast cancer Procedures TODD DIAGNOSTIC BILATERAL DIAGNOSTIC MAMMOGRAPHY COMPUTER-AIDED DETCJ Steffen Cortez MD [address] [place] [address] [facility] [place] [id number] Referral ID Status Reason Start Date Expiration Date Visits Requested Visits Authorized [id number] New Request Auto-Generat ed Referral 03/09/2025 04/13/2025 1 1 [facility] Summary Purpose Family History No Family History Records FoundNo Family History Records FoundNo Family History Records Found Advance Directives No Advanced Directives Records Found Advance Directive Response Recorded Date/ Time Advance Directives No October 20, 2016 9:18am Chief Complaint and Reason for Visit Chief Complaint History of Breast Ca ncer Chief Complaint History of bc Chief Complaint Admit Date z85.3 March 06, 2024 2: 31pm Additional Source Comments INFORMATION SOURCE (unrecogn ized section and content) DATE CREATED AUTHOR 01/26/2022 [facility] DATE CREATED AUTHOR AUTHOR'S ORGANIZ ATION 03/11/2024 [facility] DATE CREATED AUTHOR AUTHOR'S ORGANIZ ATION 03/17/2024 [facility] Care Teams (unrecognized sec tion and content) Team Status: Active Member Role Status Dates Kaleb Mcmullen MD Primary Care Provider Active Team Status: Inactive Member Role Status Dates Kaleb Mcmullen MD Primary Care Provider Active Zack Brothers MD Attending Provider Active [employer] Relationship Specialty Start Date End Date Kaleb Mcmullen MD PCP - General Family Medicine 04/26/11 Team Status: Inactive Member Role Status Dates Kaleb Mcmullen MD Primary Care Provider Active Start: March 06, 2024 End: March 06, 2024 Zack Brothers MD Attending Provider Active Start: March 06, 2024 End: March 06, 2024 [employer] Relationship Specialty Start Date End Date Kaleb Mcmullen MD PCP - General Family Medicine 04/26/11 Goals (unrecognized section and content) Goals may be documented in a n alternate sectionGoals may be documented in an alternate sectionGoals may be documented in an alternate section Source Comments (unrecognize d section and content) In the event this informatio n is protected by the Federal Confidentiality of Alcohol and Drug Abuse Patient Records regulations: The Federal rules restrict any use of the information to criminally investigate or prosecute any alcohol or drug abuse patient.[facility] the event this information is protected by the Federal Confidentiality of Alcohol and Drug Abuse Patient Records regulations: The Federal rules restrict any use of the information to criminally investigate or prosecute any alcohol or drug abuse patient.[facility] Reason for Visit (unrecogniz ed section and content) Reason Comments Breast Cancer FOR RECORDS PERTAINING TO PATIENTS WHO ARE OR HAVE BEEN ENROLLED IN A CHEMICAL DEPENDENCY/SUBSTANCEABUSE PROGRAM, SOME INFORMATION MAY BE OMITTED. This clinical summary was aggregated from multiple sources. Caution should be exercised in using it in the provision of clinical care. This summary normalizes information from multiple sources, and as a consequence, information in this document may materially change the coding, format and clinical context of patient data. In addition, data may be omitted in some cases. CLINICAL DECISIONS SHOULD BE BASED ON THE PRIMARY CLINICAL RECORDS. [facility]. provides no warranty or guarantee of the accuracy or completeness of information in this document.
[2024-03-27 08:50] LABS: Estimated Average Glucose 120 mg/dL; Glycohemoglobin A1C 5.8 % (4.5-6.2)
[2024-03-27 09:18] LABS: Basophils Percent Auto 0.6 % (0.2-2.0); Eosinophils Absolute Auto 0.2 10^3/uL (0.0-0.7); Eosinophils Percent Auto 2.5 % (0.9-7.0); Hematocrit 43.5 % (36.0-48.0); Hemoglobin 14.4 g/dL (12.0-16.0); Immature Granulocytes Abs Auto 0.03 10^3/uL (0.00-0.03); Immature Granulocytes Pct Auto 0.4 % (0.0-0.5); Lymphocytes Absolute Auto 2.2 10^3/uL (1.2-3.8); Lymphocytes Percent Auto 32.1 % (20.5-60.0); Mean Corpuscular HGB Conc 33.1 g/dL (29.9-35.2); Mean Corpuscular Hemoglobin 30.8 pg (26.7-34.0); Mean Corpuscular Volume 93.1 fL (81.0-99.0); Mean Platelet Volume 10.8 fL (9.5-13.5); Monocytes Absolute Auto 0.5 10^3/uL (0.3-0.8); Monocytes Percent Auto 7.6 % (1.7-12.0); Neutrophils Absolute Auto 3.9 10^3/uL (1.4-6.5); Neutrophils Percent Auto 56.8 % (43.0-75.0); Platelet Count 232 10^3/uL (150-450); Red Blood Count 4.67 10^6/uL (4.20-5.40); Red Cell Distribution Width 12.7 % (11.0-15.0); White Blood Count 6.8 10^3/uL (4.0-11.0)
[2024-03-27 09:35] LABS: Alanine Aminotransferase 26 U/L (14-59); Albumin Globulin Ratio 0.9; Albumin Level 3.7 g/dL (3.4-5.0); Alkaline Phosphatase 75 U/L (46-116); Anion Gap 9.3; Aspartate Amino Transferase 27 U/L (15-37); BUN Creatinine Ratio 13.8; Bilirubin Total 0.6 mg/dL (0.2-1.0); Calcium 9.2 mg/dL (8.5-10.1); Carbon Dioxide 29.9 mmol/L (21.0-32.0); Chloride 105 mmol/L (98-107); Chol HDL Ratio 2.5; Cholesterol 170 mg/dL (<=200); Estimated GFR (African America >60 (>=60 mL/min/1.73m^2); Estimated GFR (Non-African Ame 58 (>=60 mL/min/1.73m^2); Free T3 2.34 pg/mL (2.18-3.98); Globulin 3.9 g/dL; Glucose 99 mg/dL (74-106); HDL Cholesterol 69 mg/dL (40-60); Potassium 4.2 mmol/L (3.5-5.1); Sodium 140 mmol/L (136-145); Total Protein 7.6 g/dL (6.4-8.2); Triglycerides 51 mg/dL (<=150); VLDL CHOLESTEROL 10.2 mg/dL
== END 2024-03-27 08:09 | disposition home or self-care (01) ==
LOC: LAB 08:09
PROVIDERS: PCP Family Medicine; Visit Provider Family Medicine
DX: E03.9 Hypothyroidism, unspecified (principal); I10 Essential (primary) hypertension; E78.00 Pure hypercholesterolemia, unspecified; E55.9 Vitamin D deficiency, unspecified; R73.09 Other abnormal glucose; D64.9 Anemia, unspecified
CPT/HCPCS: 36415; 80053; 80061; 82306; 83036; 83540; 84436; 84443; 84481; 85025

== ENCOUNTER 2024-11-23 09:55 | Emergency (ER) | payer MEDICARE, SELFPAY ==
--- OUTSIDE RECORDS SUMMARY | 2024-03-14 11:30 | XMS_ITS ---
Author Name Auto Generated Organization [facility] Care Team Providers Care Visual Designer Name Role Phone KALEB MCMULLEN Primary Care Unavailable Steffen BROTHERS Attending Unavailable Zack Brothers Admitting Unavailable Zack Brothers Attending Unavailable Kaleb Mcmullen Primary Care Unavailable PROBLEMS DATE TYPE CONDITION / CODE ATTENDING STATUS [facility] 03/06/2024 Unknown Personal history of malignant neoplasm of breast / Z85.3(ICD-10) Zack Brothers [facility] PROCEDURES No Procedure Records Found RESULTS CNOV Observed: 03/14/2024 10:30 AM Status: COMPLETED Source: [facility] Office Visit (RADTSA) OZZIE SHERMAN ([id number]) 1950 F Date Time Provider Department 03/14/24 10:30 AM Steffen BROTHERS RADTSA During your visit today, we recorded the following information about you: Temperature Pulse Respiration Blood pressure 98.6 degrees 70/minute 18/minute 152/80 Weight 116.8 kg Steffen Brothers MD 03/14/2024 10:38 AM Signed Radiation Oncology - Follow Up Note PATIENT NAME: Ozzie Sherman PATIENT Diagnosis: Breast cancer, 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 The patient denies any new problems. No changes on self breast exam. She denies headache, vision changes, bone pain, chest pain, SOB, N/V, or focal neurologic deficits. RADIOLOGY: Bilateral mammography 03/06/2024: No mammographic evidence of malignancy. Routine follow-up in 1 year recommended. ALLERGIES: ALLERGIES Allergen Reactions Dilaudid [Hydromorp* Mental Status Change Erythromycin Vomiting MEDICATIONS: brimonidine (ALPHAGAN) 0.2 % ophthalmic solution USE 1 DROP IN LEFT EYE EACH MORNING latanoprost (XALATAN) 0.005 % ophthalmic solution liothyronine (CYTOMEL) 5 mcg tablet Take 5 mcg by mouth once daily. lisinopril (ZESTRIL) 20 mg tablet Take 20 mg by mouth once daily. LOVASTATIN 20 mg tablet Take 20 mg by mouth daily at bedtime. loratadine (CLARITIN) 10 mg tablet Take 10 mg by mouth once daily. PHYSICAL EXAM: VS: BP 152/80 Pulse 70 Temp 37 ?C (98.6 ?F) Resp 18 Wt 116.8 kg (257 lb 8 oz) SpO2 97% BMI 42.85 kg/m? KPS: 100 General Appearance: Well appearing, alert, in no acute distress, well-hydrated, well nourished.. Skin: Skin color, texture, turgor normal, no suspicious rashes or lesions. Lungs: Lungs clear to auscultation. No wheezing, rhonchi, rales.. Heart: RRR without murmur, gallop, or rubs. No ectopy. Lymph Nodes: No cervical lymphadenopathy, No supraclavicular lymphadenopathy and No axillary lymphadenopathy.. Breast: Persistent fullness upper outer right breast without overlying skin changes or tenderness consistent with stable late radiation change. No erythema. Left breast free of suspicious findings or concerns. 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 Patient continues to do very well. No clinical or radiographic evidence of recurrence. Discussed having her come back on an as-needed basis recommend continued mammography. Encouraged patient to call should she have questions or concerns in the future. Signed by: Steffen Brothers MD Portions of the above note extracted and edited from previous visit as well as active information included in the EMR. Allergies As of Date: 03/14/2024 Noted Allergy Reaction DILAUDID (HYDROMORPHONE (BULK)) 07/19/2018 1 - Mental Status Change ERYTHROMYCIN 12/26/2011 11 - Vomiting Date Reviewed: 03/01/2023 Reviewed by: Antoinette Izaguirre LPN - Fully Assessed Reason for Visit: Breast Cancer [519] Primary Visit Diagnosis:History of breast cancer [Z85.3] Order(s):[facility] DIAGNOSTIC BILATERAL [[id number]] Order #: [id number] FUTURE Prescriptions as of 03/14/2024 - brimonidine (ALPHAGAN) 0.2 % ophthalmic solution USE 1 DROP IN LEFT EYE EACH MORNING - latanoprost (XALATAN) 0.005 % ophthalmic solution - liothyronine (CYTOMEL) 5 mcg tablet Take 5 mcg by mouth once daily. - lisinopril (ZESTRIL) 20 mg tablet Take 20 mg by mouth once daily. - LOVASTATIN 20 mg tablet Take 20 mg by mouth daily at bedtime. - loratadine (CLARITIN) 10 mg tablet Take 10 mg by mouth once daily. Problem List As Of Date 03/14/2024 Noted Resolved Intraductal carcinoma [D05.10] 03/10/2020 History of breast cancer [Z85.3] 11/12/2013 Ureter injury [S37.10XA] 07/18/2018 Abnormal urine finding [R82.90] 07/23/2018 03/10/2020 Malnutrition of mild degree (HCC) [E44.1] 08/20/2018 03/10/2020 Ureteral stricture [N13.5] 11/22/2018 Class 3 severe obesity with body mass index (BM*03/10/2020 Level of Service: OFFICE/OUTPATIENT ESTABLISHED SF MDM 10 MIN [83737] Additional E/M codes: VISIT CPLX INHERENT EANDM ASSOC WITH MED * Disposition: Return in about 1 year (around 03/14/2025), or if symptoms worsen or fail to improve. Follow-up and Disposition History for Encounter Date Provider Department Center 03/14/2024 [id number] BROTHERS SOFIA [facility] Encounter Status:Closed by Steffen BROTHERS on 03/14/24 PROGRESS Observed: 03/14/2024 10:14 AM Status: COMPLETED Source: [facility] HNO ID: [id number] Author: Steffen BROTHERS MD Service: ? 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 The patient denies any new problems. No changes on self breast exam. She denies headache, vision changes, bone pain, chest pain, SOB, N/V, or focal neurologic deficits. RADIOLOGY: Bilateral mammography 03/06/2024: No mammographic evidence of malignancy. Routine follow-up in 1 year recommended. ALLERGIES: ALLERGIES Allergen Reactions Dilaudid [Hydromorp* Mental Status Change Erythromycin Vomiting MEDICATIONS: brimonidine (ALPHAGAN) 0.2 % ophthalmic solution USE 1 DROP IN LEFT EYE EACH MORNING latanoprost (XALATAN) 0.005 % ophthalmic solution liothyronine (CYTOMEL) 5 mcg tablet Take 5 mcg by mouth once daily. lisinopril (ZESTRIL) 20 mg tablet Take 20 mg by mouth once daily. LOVASTATIN 20 mg tablet Take 20 mg by mouth daily at bedtime. loratadine (CLARITIN) 10 mg tablet Take 10 mg by mouth once daily. PHYSICAL EXAM: VS: BP 152/80 Pulse 70 Temp 37 ?C (98.6 ?F) Resp 18 Wt 116.8 kg (257 lb 8 oz) SpO2 97% BMI 42.85 kg/m? KPS: 100 General Appearance: Well appearing, alert, in no acute distress, well-hydrated, well nourished.. Skin: Skin color, texture, turgor normal, no suspicious rashes or lesions. Lungs: Lungs clear to auscultation. No wheezing, rhonchi, rales.. Heart: RRR without murmur, gallop, or rubs. No ectopy. Lymph Nodes: No cervical lymphadenopathy, No supraclavicular lymphadenopathy and No axillary lymphadenopathy.. Breast: Persistent fullness upper outer right breast without overlying skin changes or tenderness consistent with stable late radiation change. No erythema. Left breast free of suspicious findings or concerns. 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 Patient continues to do very well. No clinical or radiographic evidence of recurrence. Discussed having her come back on an as-needed basis recommend continued mammography. Encouraged patient to call should she have questions or concerns in the future. Signed by: Steffen Brothers MD Portions of the above note extracted and edited from previous visit as well as active information included in the EMR. MM DIAGNOSTIC MAMMO BI W/CAD Observed: 03/06/2024 3:00 PM Status: COMPLETED Source: [facility] [place] [address] Mammography Report Signed Patient: Ozzie Sherman MR#: [id number] 37 : 1950 Acct:[id number] Age/Sex: 73 / F ADM Date: 03/06/24 Loc: [place] Room: Type: [facility] Attending Dr: Zack Brothers MD Copies to: MD Steffen Valdovinos MD Ordering Provider: Steffen Brothers MD Date of Service: 03/06/24 MM/MM diagnostic mammo BI w/CAD: Z85.3 DIAGNOSTIC BILATERAL MAMMOGRAM - FULL FIELD DIGITAL WITH TOMOSYNTHESIS CLINICAL DATA: History of breast cancer Craniocaudal and mediolateral oblique views of the bilateral breast were obtained using low-dose digital technique. Comparison is made to prior studies dating back to 2019 This examination was reviewed with the aid of CAD. There are no dominant masses, typically malignant calcifications or architectural distortion. There has been no significant interval change. MM/MM diagnostic mammo BI w/CAD IMPRESSION: NO MAMMOGRAPHIC EVIDENCE OF MALIGNANCY. ROUTINE FOLLOW-UP IS RECOMMENDED IN ONE YEAR. RESULT CODE: 1 Negative DENSITY CODE: 2 (approximately 25-50% glandular) FOLLOW UP: 1YR The false-negative rate of mammography is approximately 10-percent. Management of a palpable abnormality must be based on clinical grounds. Impression dictated by: James Mccullough M.D.03/06/2024 3:04 PM Dictation Location: [facility] Transcribed By: [facility] 03/06/24 1504 Dictated By: James Mccullough MD 03/06/24 1500 Signed By: <Electronically signed by James Mccullough MD in OV> 03/06/24 1504 ALLERGIES DATE TYPE / CODE NAME / CODE REACTION SEVERITY SOURCE 07/19/2018 DRUG/[id number] (SNOMED CT) HYDROMORPHONE (BULK) [facility] 12/26/2011 DRUG/[id number] (SNOMED CT) ERYTHROMYCIN Vomiting [facility] ENCOUNTERS ADMIT/DISCHARGE ACCOUNT NUMBER ADMITTING ENCOUNTER CLASS LOCATION SOURCE 03/14/2024/03/14/19 [id number] [facility] 03/06/2024/03/06/19 [id number] [facility] PAYERS ENCOUNTER GUARANTOR PAYER SUBSCRIBER SOURCE 03/14/2024 Primary Insurance:[employer] MEDICARE PPOPolicy Number: [id number] ve Date:[id number] Name:Uvaldo JONESB: [id number] [place] [address] [facility] 03/06/2024 Ozzie Siddharth ShermanB[address] [place] [address]Luj: (HP) [facility] PFFSPolicy Number: [id number] ve Date:[id number] PasJOSIE pierce [phone]: Ozzie Rojas: [id number] [place] [address]Cyl: () [facility] 03/06/2024 Secondary Insurance:Self PayPolicy Number: Effective Date:2024-02-13 NOT GIVENUNK [facility]
[2024-11-23] VITALS (9 sets, daily range): BP systolic 135–150; BP diastolic 70–73; PULSE 69–86; TEMP 36.8; O2SAT 94–96; BMI 41.6
--- NOTE | 2024-11-23 10:19 | ECG_ITS ---
The [facility] Test Date: 2024-11-23 Pat Name: OZZIE SHERMAN Department: Room: - Gender: Female Juvenile Justice Specialist: : 1950 Requested By: [id number] Order Number: [id number] Reading MD: NESSA CHAPMAN M.D. Measurements Intervals [place] Rate: 81 P: 50 VT: 172 QRS: -52 QRSD: 144 T: 99 QT: 398 QTc: 435 Interpretive Statements 1100 Sinus rhythm 2550 Left bundle branch block 9150 abnormal ECG Compared to ECG 06/04/2018 08:32:24 Sinus bradycardia no longer present Electronically Signed On 11-23-2024 10:29:35 EDT by NESSA CHAPMAN M.D.
--- NOTE | 2024-11-23 10:19 | XR_ITS ---
The [address] [address] Patient Name: OZZIE SHERMAN MRN: [id number] date: 1950 Sex: F Assigned Patient Location: ER Current Patient Location: ER Accession/Order Number: [id number] Exam Date: 11/23/2024 10:32 Report Date: 11/23/2024 10:52 At the request of: JEFF PATEL MD Procedure: XR chest 1V XR chest 1V 11/23/2024 10:39 AM SIGNS AND SYMPTOMS: ^Fast heart rate at home ^Y PROTOCOL: Frontal radiograph of the chest COMPARISON: None FINDINGS: The trachea is midline. Atherosclerotic changes are present in the thoracic aorta. The heart and mediastinal structures are within normal limits. The lung parenchyma is clear. The bony thorax is intact. Degenerative changes are noted in the shoulders and thoracic spine. There is a dextro convex curvature of the thoracic spine. XR/XR chest 1V IMPRESSION: No acute cardiopulmonary pathology. Impression dictated by: Samuel Brito M.D. 11/23/2024 10:52 AM Dictation Location: [facility] Electronically authenticated by: [id number] Y Date: 11/23/2024 10:52
--- NOTE | 2024-11-23 10:20 | ED.GENADUL1 ---
HPI HPI - General Adult General Chief complaint: Arrhythmia/Palpitations Stated complaint: INCREASED HEART RATE Time Seen by Provider: 11/23/24 10:16 Source: patient Mode of arrival: walk-in Limitations: no limitations History of Present Illness HPI narrative: 74-year-old female presented because her watch told her her heart rate was fast. She states it started during the middle of the night and her heart rate was up to 120. She did not feel palpitations or dizzy or lightheaded and she does not have chest pain. She is not feeling it now. She has never had any heart rhythm abnormalities before. No new medications and she has not been ill recently, no fever or vomiting. Related Data Home Medications ?Medication ?Instructions ?Recorded ?Confirmed liothyronine 5 mcg tablet 5 mcg PO DAILY 11/23/24 11/23/24 lisinopril 20 mg tablet 20 mg PO DAILY 11/23/24 11/23/24 lovastatin 20 mg tablet 20 mg PO HS 11/23/24 11/23/24 Allergies Allergy/AdvReac Type Severity Reaction Status Date / Time erythromycin base AdvReac Severe Nausea Verified 11/23/24 10:05 Review of Systems ROS Narrative A ten point review of systems is negative except as noted above. PFSH PFSH Social History Little interest or pleasure in doing things: not at all Feeling down, depressed, or hopeless: not at all Exam Narrative Exam Narrative: Nurses note and vital signs reviewed and patient is not hypoxic. General:The patient appears well and in no apparent distress.Patient is resting comfortably on cart. Skin:Warm, dry, no pallor noted.There is no rash noted. Head:Normocephalic, atraumatic Eye: Normal conjunctiva, no drainage Ears, Nose, Mouth, and Throat: oral mucosa is moist. Nares patent. Cardiovascular:Regular Rate and Rhythm, not tachycardic Respiratory:Patient is in no distress, no accessory muscle use, lungs are clear to auscultation, no wheezing, rales or rhonchi Back:non-tender GI: Soft and nontender Musculoskeletal: The patient has no evidence of calf tenderness, no pitting edema, symmetrical pulses noted bilaterally Neurological:A&O, normal speech Psychiatric:Cooperative Constitutional Vital Signs, click to edit/add: Last Vital Signs Temp 98.2 F 11/23/24 10:05 Pulse 80 11/23/24 10:05 Resp 16 11/23/24 10:05 BP 150/70 H 11/23/24 10:05 Pulse Ox 96 11/23/24 10:56 O2 Del Method Room Air 11/23/24 10:56 Course Vital Signs Vital signs: Vital Signs Temperature 98.2 F 11/23/24 10:05 Pulse Rate 80 11/23/24 10:05 Respiratory Rate 16 11/23/24 10:05 Blood Pressure 150/70 H 11/23/24 10:05 Pulse Oximetry 95 11/23/24 10:05 Oxygen Delivery Method Room Air 11/23/24 10:05 Temperature 98.2 F 11/23/24 10:05 Pulse Rate 80 11/23/24 10:05 Respiratory Rate 16 11/23/24 10:05 Blood Pressure 150/70 H 11/23/24 10:05 Pulse Oximetry 96 11/23/24 10:56 Oxygen Delivery Method Room Air 11/23/24 10:56 Medical Decision Making MDM Narrative Medical decision making narrative: Her workup is negative and she has had no dysrhythmias here. She will follow-up with her doctor if symptoms recur. Treatment diagnosis and follow-up were discussed with the patient. Differential Diagnosis Differential Diagnosis: Atrial fibrillation, atrial flutter, sinus tachycardia, watch malfunction Lab Data Lab results reviewed: Yes I reviewed the patient's lab results Labs: Lab Results 11/23/24 Range/Units 10:28 WBC 8.3 (4.0-11.0) 10^3/uL RBC 5.00 (4.20-5.40) 10^6/uL Hgb 15.5 (12.0-16.0) g/dL Hct 45.9 (36.0-48.0) % MCV 91.8 (81.0-99.0) fL MCH 31.0 (26.7-34.0) pg MCHC 33.8 (29.9-35.2) g/dL RDW 12.2 (11.0-15.0) % Plt Count 234 (150-450) 10^3/uL MPV 10.7 (9.5-13.5) fL Neut % (Auto) 68.1 (43.0-75.0) % Lymph % (Auto) 23.7 (20.5-60.0) % Kemper % (Auto) 6.4 (1.7-12.0) % Eos % (Auto) 0.8 L (0.9-7.0) % Baso % (Auto) 0.4 (0.2-2.0) % Neut # (Auto) 5.6 (1.4-6.5) 10^3/uL Lymph # (Auto) 2.0 (1.2-3.8) 10^3/uL Kemper # (Auto) 0.5 (0.3-0.8) 10^3/uL Eos # (Auto) 0.1 (0.0-0.7) 10^3/uL Baso # (Auto) 0.0 (0.0-0.1) 10^3/uL Abs Immat Gran (auto) 0.05 H (0.00-0.03) 10^3/uL Imm/Tot Granulo (auto) 0.6 H (0.0-0.5) % Sodium 139 (136-145) mmol/L Potassium 4.3 (3.5-5.1) mmol/L Chloride 102 (98-107) mmol/L Carbon Dioxide 27.9 (21.0-32.0) mmol/L Anion Gap 13.4 BUN 18.0 (7.0-18.0) mg/dL Creatinine 0.95 (0.55-1.02) mg/dL Est GFR ( Amer) >60 (>=60 mL/min/1.73m^2) Est GFR (Non-Af Amer) 57 L (>=60 mL/min/1.73m^2) BUN/Creatinine Ratio 18.9 Glucose 127 H (74-106) mg/dL Calcium 9.4 (8.5-10.1) mg/dL Magnesium 1.7 L (1.8-2.4) mg/dL Troponin I High Sens 9.9 (4.0-51.3) pg/mL ECG Data Attestation: I personally reviewed and interpreted this ECG as follows: (EKG on my interpretation shows sinus rhythm with a rate of 81 and a left bundle branch block. The patient reports that she has had a left bundle branch block for years.) Discharge Plan Discharge Chief Complaint: Arrhythmia/Palpitations Clinical Impression: Tachycardia Patient Disposition: Home, Self-Care Time of Disposition Decision: 11:12 Condition: Good Mode of Transportation: Private Vehicle Prescriptions / Home Meds: No Action liothyronine 5 mcg tablet 5 mcg PO DAILY lisinopril 20 mg tablet 20 mg PO DAILY lovastatin 20 mg tablet 20 mg PO HS Print Language: Occitan Instructions: Tachycardia (ED) Referrals: Davis Mcmullen MD [Primary Care Provider, Family Practice] - 1 week
[2024-11-23 10:38] LABS: Hematocrit 45.9 % (36.0-48.0); Hemoglobin 15.5 g/dL (12.0-16.0); Immature Granulocytes Abs Auto 0.05 10^3/uL (0.00-0.03); Immature Granulocytes Pct Auto 0.6 % (0.0-0.5); Lymphocytes Absolute Auto 2.0 10^3/uL (1.2-3.8); Mean Corpuscular HGB Conc 33.8 g/dL (29.9-35.2); Mean Corpuscular Hemoglobin 31.0 pg (26.7-34.0); Mean Corpuscular Volume 91.8 fL (81.0-99.0); Platelet Count 234 10^3/uL (150-450); Red Blood Count 5.00 10^6/uL (4.20-5.40); White Blood Count 8.3 10^3/uL (4.0-11.0)
[2024-11-23 11:01] LABS: Anion Gap 13.4; Blood Urea Nitrogen 18.0 mg/dL (7.0-18.0); Calcium 9.4 mg/dL (8.5-10.1); Carbon Dioxide 27.9 mmol/L (21.0-32.0); Chloride 102 mmol/L (98-107); Estimated GFR (African America >60 (>=60 mL/min/1.73m^2); Estimated GFR (Non-African Ame 57 (>=60 mL/min/1.73m^2); Glucose 127 mg/dL (74-106); Magnesium 1.7 mg/dL (1.8-2.4); Potassium 4.3 mmol/L (3.5-5.1); Sodium 139 mmol/L (136-145)
== END 2024-11-23 11:25 | disposition home or self-care (01) ==
PROVIDERS: Emergency Provider Emergency Medicine; PCP Family Medicine
DX: R00.0 Tachycardia, unspecified (principal)
CPT/HCPCS: 36415; 71045; 80048; 83735; 84484; 85025; 93005; 99285